=== PATIENT | male | born 1980 | race Two or more races ===

== ENCOUNTER 2019-05-11 19:05 | Emergency (ER) | payer BC ==
[~2019-05-11] VITALS: Ht 188 cm; Wt 84.8 kg
[2019-05-11 19:15] VITALS: BP 115/71
--- NOTE | 2019-05-11 20:52 | NUR ---
CALLED IN [facility], NO ANSWER.
--- NOTE | 2019-05-11 21:03 | NUR ---
PATIENT LEFT, NOT IN THE [facility].
== END 2019-05-11 21:05 | disposition left against medical advice (07) ==
LOC: ER 19:09
DX: Z53.21 Procedure and treatment not carried out due to patient leaving prior to being seen by health care provider (principal); R11.2 Nausea with vomiting, unspecified